=== PATIENT | male | born 1990 | race Caucasian/White ===

== ENCOUNTER 2018-07-13 18:42 | Emergency (ER) | payer MEDICAID, OTHER, SELFPAY ==
[~2018-07-13] VITALS: Ht 165.1 cm; Wt 158.0 kg
--- NOTE | 2018-07-13 19:20 | NUR ---
PT C/O USING HEROIN AND METH 07/11 AND WOULD LIKE TO QUIT. STATES HE IS HERE TONIGHT FOR DETOX AND "IT IS COLD OUTSIDE. IM TIRED OF BEING KICKED OUT OF PLACES. I EVEN SLEPT IN A [employer] LAST NIGHT. IM OVER IT." NO OTHER MEDICAL COMPLAINTS AT THIS TIME. CALL LIGHT WITHIN REACH. PT STATES USED TO BE AN ALCOHOLIC AND "TOOK A COUPLE SHOTS TODAY." DENIES DRINKING FREQUENTLY. DENIES HX OF D/T.
--- NOTE | 2018-07-13 19:55 | NUR ---
PT STATES UNABLE TO UA AT THIS TIME. AWAITING UA AND LABS.
[2018-07-13 20:12] LABS: BASOPHILS # (AUTO) 0.13 x10^3/uL (0-0.1); BASOPHILS % (AUTO) 1 % (0-1); EOSINOPHILS # (AUTO) 0.12 x10^3/uL (0-0.4); EOSINOPHILS % (AUTO) 1 % (1-7); LYMPHOCYTES # (AUTO) 3.84 x10^3/uL (1-3.4); LYMPHOCYTES % (AUTO) 41 % (22-44); MD NO; MEAN CORPUSCULAR HEMOGLOBIN 31.1 pg (27.5-34.5); MEAN CORPUSCULAR HGB CONC 34.1 g/dL (33.2-36.2); MEAN CORPUSCULAR VOLUME 91.2 fL (81-97); MEAN PLATELET VOLUME 7.6 fL (7.4-10.4); MONOCYTES # (AUTO) 0.24 x10^3/uL (0.2-0.8); MONOCYTES % (AUTO) 3 % (2-9); NEUTROPHILS # (AUTO) 4.94 x10^3/uL (1.8-6.8); NEUTROPHILS % (AUTO) 53 % (42-75); PLATELET COUNT 317 x10^3/uL (130-400); RED BLOOD COUNT 4.37 x10^6/uL (4.38-5.82); RED CELL DISTRIBUTION WIDTH 13.7 % (9.4-14.8)
[2018-07-13 20:20] LABS: ALANINE AMINOTRANSFERASE 27 U/L (12-78); ALBUMIN 3.7 g/dL (3.4-5.0); ANION GAP 6 mmol/L (5-15); CALCIUM 8.6 mg/dL (8.5-10.1); CHLORIDE 108 mmol/L (98-107); CREATININE 0.99 mg/dL (0.7-1.3); SALICYLATE LEVEL 2.2 mg/dL (2.8-20.0)
[2018-07-13 20:22] LABS: ALKALINE PHOSPHATASE 69 U/L (45-117); BILIRUBIN,TOTAL 0.3 mg/dL (0.2-1.0); TOTAL PROTEIN 7.3 g/dL (6.4-8.2)
[2018-07-13 20:25] LABS: ACETAMINOPHEN < 2 mcg/mL (10-30)
[2018-07-13 20:34] LABS: AMPHETAMINE SCREEN, URINE Positive (Negative); BARBITURATE SCREEN, URINE Negative (Negative); BENZODIAZEPINE SCREEN, URINE Negative (Negative); CANNABINOID SCREEN, URINE Positive (Negative); COCAINE SCREEN, URINE Negative (Negative); METHADONE SCREEN, URINE Negative (Negative); OPIATE SCREEN, URINE Positive (Negative)
[2018-07-13 21:15] VITALS: BP 115/80
--- NOTE | 2018-07-13 21:15 | NUR ---
PT SLEEPING COMFORTABLY ON GURNEY. RR EVEN AND UNLABORED. NADN. CALL LIGHT WITHIN REACH.
--- NOTE | 2018-07-13 21:52 | NUR ---
PT GIVEN RESOURCES FOR SUBSTANCE ABUSE AND WAYS TO HELP PAY FOR MEDICATION. GIVEN TAXI VOUCHER TO INTERMEDIATE PER REQUEST. STATES "THIS ISNT GOING TO [facility] WORK DUDE. WATCH THEM BE COLD AND ILL BE RIGHT BACK HERE. YOU GUYS DONT NATASHA UNDERSTAND. ILL FREEZE OUT THERE.... WHATEVER, FUCK YOU DUDE."
== END 2018-07-13 21:56 | disposition home or self-care (01) ==
LOC: ED 21:50
DX: F10.239 Alcohol dependence with withdrawal, unspecified (principal); F11.23 Opioid dependence with withdrawal; Z72.89 Other problems related to lifestyle
CPT/HCPCS: 36415; 80053; 80307; 80329; 85025; 99283; G0480

== ENCOUNTER 2018-08-08 14:51 | Emergency (ER) | payer MEDICAID ==
[~2018-08-08] VITALS: Ht 167.6 cm; Wt 73.0 kg
--- NOTE | 2018-08-08 15:12 | NUR ---
PATIENT YARITZA HENRY [facility], + LOC, PATIENT HAS LAC TO POST RT HEAD, C/O HEAD PAIN, DENIES NECK/BACK PAIN. PATIENT REPORTS ETOH USE TODAY, "4 DOUBLE SHOTS", A+OX4, NAD NOTED, PATIENT TO CT AT THIS TIME. BS- 118 PER EMS.
[2018-08-08] MEDS ORDERED: METH5TAB2 PO (15:15)
[2018-08-08] MEDS ORDERED: LIDOCAINE-MPF 1%, 5ML ONE (15:23)
[2018-08-08] MEDS ORDERED: LIDOCAINE-MPF 1%, 5ML INFIL ONE (15:30)
--- NOTE | 2018-08-08 16:01 | NUR ---
PATIENT TO MRI VIA [facility] AT THIS TIME, A+OX4.
--- NOTE | 2018-08-08 17:17 | NUR ---
PATIENT REQUESTING TO GO OUTSIDE TO SMOKE. PATIENT EDUCATED REGARDING NEED TO STAY AND UNDERSTANDS RISKS IF PATIENT LEAVES AMA. PATIENT STILL REFUSING TO STAY, REQUESTING TO GO OUTSIDE TO SMOKE. MD AWARE AND EDUCATED PATIENT REGARDING NEED TO STAY, ER SUP AWARE OF SITUATION. PATIENT STATES HE IS HOMELESS, JACKET PROVIDED TO PATIENT, PATIENT SIGNED AMA FORM. PATIENT AMB WITH STEADY GAIT TO DC DESK. PATIENT AGREES TO CHECK BACK IN IF SYMPTOMS GET WORSE PER PATIENT.
[2018-08-08 17:22] VITALS: BP 135/54
== END 2018-08-08 17:24 | disposition left against medical advice (07) ==
LOC: ED 17:14
DX: S06.5X9A Traumatic subdural hemorrhage with loss of consciousness of unspecified duration, initial encounter (principal); Y04.0XXA Assault by unarmed brawl or fight, initial encounter; Y93.89 Activity, other specified; Y92.512 Supermarket, store or market as the place of occurrence of the external cause; Y99.8 Other external cause status
CPT/HCPCS: 70450; 70551; 99291

== ENCOUNTER 2018-08-26 05:31 | Emergency (ER) | payer MEDICAID ==
[~2018-08-26] VITALS: Ht 165.1 cm; Wt 72.3 kg
[~2018-08-26 05:31] MED LIST: METH5TAB2 PO
[2018-08-26 05:36] VITALS: BP 124/83
--- NOTE | 2018-08-26 05:51 | NUR ---
assessment made. 2 jimmy removed in triage.
--- NOTE | 2018-08-26 05:57 | NUR ---
no gaping, bleeding, no redness on staple site.
== END 2018-08-26 05:59 | disposition left against medical advice (07) ==
LOC: ED 05:32
DX: Z53.21 Procedure and treatment not carried out due to patient leaving prior to being seen by health care provider (principal)